=== PATIENT | female | born 1955 | race Caucasian/White ===

== ENCOUNTER 2022-03-24 13:51 | Outpatient (RCR) | payer MEDICARE, SELFPAY ==
[2022-03-24] MEDS: diphenhydrAMINE HCl CAP 25 MG CAPSULE PO (13:57)
[2022-03-24] MEDS: FAMOTIDINE 20 MG TABLET PO (13:57)
[2022-03-24 14:00] VITALS: BP 126/75; PULSE 93; RESP 18; TEMP 36.8; O2SAT 99
[2022-03-24] MEDS: BEBTELOVIMAB 175 MG/2 ML VIAL IV PUSH (14:14)
[2022-03-24 14:57] VITALS: BP 114/67; PULSE 77; RESP 20; O2SAT 98
== END 2022-03-24 16:24 ==
LOC: AMCINF 13:51
PROVIDERS: Referring Provider Family Medicine; Visit Provider Internal Medicine Hematology & Oncology
DX: U07.1 COVID-19 (principal)
CPT/HCPCS: A9270; M0222; Q0222

== ENCOUNTER 2022-11-12 09:35 | Outpatient (CLI) | payer MEDICARE, SELFPAY ==
[2022-11-12 12:18] LABS: CRP 0.7 mg/dL (<1.0)
[2022-11-12 12:26] LABS: Erythrocyte Sedimentation Rate 17 mm/hr (0-20)
[2022-11-17 22:27] LABS: Anti Cyclic Citrullinated Pept <16 Units (<20)
== END 2022-11-12 11:12 | disposition home or self-care (01) ==
PROVIDERS: PCP Family Medicine; Visit Provider Internal Medicine
DX: M19.90 Unspecified osteoarthritis, unspecified site (principal)
CPT/HCPCS: 36415; 85652; 86038; 86140; 86200

== ENCOUNTER 2022-11-12 11:19 | Outpatient (CLI) | payer MEDICARE, SELFPAY ==
--- NOTE | ~2022-11-12 | XR_ITS ---
EXAMINATION: XR foot RT standing 2V, XR foot LT standing 2V DATE: 11/12/2022 12:03 INDICATION: Unspecified osteoarthritis. TECHNIQUE: 1. Dorsoplantar and lateral views of the left foot were obtained. 2. Dorsoplantar and lateral views of the right foot were obtained. COMPARISON: None. FINDINGS: Left foot: Mild pes planus. There is some residual lucency along a fracture line at the proximal metadiaphysis o f the left fifth metatarsal with prominent associated callus formation, unclear whether there is alix d union. No other fractures identified. Polyarticular osteoarthritis, mild to moderate at the first m etatarsophalangeal joint and mild at multiple tarsometatarsal and interphalangeal joints. Moderate-si zed Achilles and plantar calcaneal spurs. Right foot: Normal alignment. Small amount of periosteal reaction along the dorsolateral cortex of the proximal m etaphysis of the right fifth metatarsal consistent with an age-indeterminate stress fracture. There i s no evident linear lucency and is unclear whether this represents ongoing subacute stress fracture o r a chronic healed stress fracture. Mild polyarticular osteophytosis at the first metatarsophalangeal joint and multiple tarsometatarsal and interphalangeal joints. Moderate-sized Achilles calcaneal and small plantar calcaneal spurs. IMPRESSION: 1. Chronic stress fracture of the proximal left fifth metatarsal with prominent callus formation but with residual lucency unclear whether solidly united. 2. Age-indeterminate stress fracture at the contralateral proximal right fifth metatarsal, unclear wh ether subacute and ongoing or chronic and healed. Reviewed, dictated and finalized at location A. 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 Chronic stress fracture of the proximal left fifth metatarsal with prominent callus formation but with residual lucency unclear whether solidly united. 2. Age-indeterminate stress fracture at the contralateral proximal right fifth metatarsal, unclear whether subacute and ongoing or chronic and healed.
[2022-11-12 12:14] LABS: Uric Acid 6.3 mg/dL (2.5-7.5)
== END 2022-11-12 11:20 | disposition home or self-care (01) ==
PROVIDERS: PCP Family Medicine; Visit Provider Internal Medicine
DX: M84.374A Stress fracture, right foot, initial encounter for fracture (principal); M84.475A Pathological fracture, left foot, initial encounter for fracture; M19.90 Unspecified osteoarthritis, unspecified site
CPT/HCPCS: 36415; 73620; 84550

== ENCOUNTER 2023-01-14 12:58 | Outpatient (CLI) | payer MEDICARE, SELFPAY ==
--- NOTE | 2023-01-14 13:22 | ECG_ITS ---
Measurements Intervals [place] Rate: 89 P: UT: 0 QRS: -25 QRSD: 85 T: -16 QT: 356 QTc: 433 Interpretive Statements SINUS OR ECTOPIC ATRIAL RHYTHM ATRIAL PREMATURE COMPLEXES LOW QRS VOLTAGE IN PRECORDIAL LEADS EXTENSIVE ANTERIOR INFARCT, AGE INDETERMINATE BASELINE ARTIFACT- I, II, AVR, AVL, AVF, V1-V6 ABNORMAL ECG NO PREVIOUS ECG AVAILABLE FOR COMPARISON Electronically Signed On 01-14-2023 14:56:23 CDT by Erick Covarrubias D.O.
[2023-01-14 16:09] LABS: Partial Thromboplastin Time 27.9 SECONDS (22.3-36.8)
[2023-01-14 17:16] LABS: Hematocrit 44.7 % (37.0-47.0); Hemoglobin 14.7 g/dL (12.0-15.0); Mean Corpuscular HGB Conc 32.9 g/dl (32-36); Mean Corpuscular Hemoglobin 30.6 pg (26-34); Mean Corpuscular Volume 93.1 fl (80-100); Mean Platelet Volume 11.3 fl (7.4-10.4); Platelet Count Result 407 k/mm3 (150-375); Red Cell Distribution Width 12.8 % (11.5-14.5)
[2023-01-14 17:57] LABS: Appearance Urine Clear (Clear); Bilirubin Urine 1+ (Negative); Blood Urine Negative (Negative); Color Urine Yellow (Yellow); Glucose Urine UA Negative (Negative); Ketones Urine 1+ mg/dL (Negative); Leukocyte Esterase Ur Negative LEU/UL (NEGATIVE); Nitrate Urine Negative (Negative); Protein Urine 1+ mg/dL (Negative); Specific Grav Ur 1.025 (1.001-1.035); Urobilinogen Urine 0.2 mg/dL (<2.0); pH Urine 5.5 (5.0-9.0)
[2023-01-14 17:59] LABS: Add Urine Microscopic? YES; RBC Urine 0-2 /hpf (0-2); Squamous Epithelial Cell Urine Rare /hpf (Few); WBC Urine 0-3 /hpf (0-3)
[2023-01-14 18:00] LABS: Bacteria Urine Rare /hpf
== END 2023-01-14 12:59 | disposition home or self-care (01) ==
LOC: ANHSURGERY 13:06
PROVIDERS: PCP Family Medicine; Visit Provider Neurological Surgery
DX: Z01.818 Encounter for other preprocedural examination (principal)
CPT/HCPCS: 36415; 80053; 81001; 82043; 83036; 85025; 85027; 85610; 85730; 86850; 86900; 86901; 93005

== ENCOUNTER 2023-01-14 13:09 | Outpatient (CLI) | payer MEDICARE, SELFPAY ==
[2023-01-14 16:01] LABS: Basophils Absolute Auto 0.1 K/mm3 (0.0-0.1); Basophils Percent Auto 0.7 % (0.2-1.2); Eosinophils Absolute Auto 0.3 K/mm3 (0-0.3); Eosinophils Percent Auto 2.9 % (0-4.4); Hematocrit 40.7 % (37.0-47.0); Hemoglobin 13.9 g/dL (12.0-15.0); Immature Granulocyte Absolute 0.03 K/mm3 (0.00-0.031); Immature Granulocyte Percent A 0.3 % (0-0.5); Lymphocytes Absolute Auto 3.57 K/mm3 (0.9-3.2); Lymphocytes Percent Auto 31.6 % (18.3-44.2); Mean Corpuscular HGB Conc 34.2 g/dl (32-36); Mean Corpuscular Hemoglobin 30.5 pg (26-34); Mean Corpuscular Volume 89.5 fl (80-100); Mean Platelet Volume 11.3 fl (7.4-10.4); Monocytes Absolute Auto 1.2 K/mm3 (0.1-0.6); Neutrophils Percent Auto 53.5 % (45.5-73.1); Platelet Count Result 399 k/mm3 (150-375); Red Blood Count 4.55 M/mm3 (4.2-5.4); Red Cell Distribution Width 12.7 % (11.5-14.5); White Blood Count 11.3 K/mm3 (4.5-10.0)
[2023-01-14 16:07] LABS: Alanine Aminotransferase 44 U/L (6-35); Albumin Level 4.7 g/dL (3.5-5.1); Alkaline Phosphatase 51 U/L (38-126); Anion Gap 11 mmol/L (8-16); Aspartate Amino Transferase 45 U/L (14-36); Bilirubin,Total 0.6 mg/dL (0.2-1.3); Blood Urea Nitrogen 17 mg/dL (7-17); Calcium 9.6 mg/dL (8.4-10.2); Carbon Dioxide 29 mmol/L (22-30); Chloride 92 mmol/L (98-107); Estimated Glomerular Filt Rate > 60; Glucose 139 mg/dL (65-110); Sodium 132 mmol/L (137-145)
[2023-01-14 18:04] LABS: Creatinine Urine 330.7 mg/dL
[2023-01-14 18:09] LABS: MALB Creatinine Ratio 12.2 mg/g (0-30); Microalbumin Urine Random 40.2 mg/L (0-16.7)
[2023-01-14 20:22] LABS: Hemoglobin A1C 8.4 % (<5.7)
== END 2023-01-14 13:10 | disposition home or self-care (01) ==
PROVIDERS: PCP Family Medicine; Visit Provider Family Medicine
DX: E11.65 Type 2 diabetes mellitus with hyperglycemia (principal)
CPT/HCPCS: 36415; 80053; 82043; 83036; 85025

== ENCOUNTER 2023-12-23 09:13 | Outpatient (CLI) | payer MEDICARE, SELFPAY ==
[2023-12-23 10:23] LABS: Hematocrit 44.7 % (37.0-47.0); Hemoglobin 14.2 g/dL (12.0-15.0); Mean Corpuscular HGB Conc 31.8 g/dl (32-36); Mean Corpuscular Hemoglobin 30.2 pg (26-34); Mean Corpuscular Volume 95.1 fl (80-100); Mean Platelet Volume 10.9 fl (7.4-10.4); Platelet Count Result 366 k/mm3 (150-375); Red Cell Distribution Width 12.2 % (11.5-14.5); White Blood Count 11.1 K/mm3 (4.5-10.0)
[2023-12-23 10:33] LABS: Anion Gap 9 mmol/L (8-16); Blood Urea Nitrogen 18 mg/dL (7-17); Calcium 9.9 mg/dL (8.4-10.2); Carbon Dioxide 30 mmol/L (22-30); Chloride 95 mmol/L (98-107); Estimated Glomerular Filt Rate > 60; Glucose 155 mg/dL (65-110); Potassium 3.5 mmol/L (3.4-5.0); Sodium 134 mmol/L (137-145)
[2023-12-23 10:34] LABS: Prothrombin Time 13.4 Seconds (11.1-14.7)
[2023-12-23 10:35] LABS: Partial Thromboplastin Time 28.3 SECONDS (22.3-36.8)
[2023-12-23 10:41] LABS: Appearance Urine Clear (Clear); Bilirubin Urine Negative (Negative); Blood Urine Negative (Negative); Color Urine Yellow (Yellow); Glucose Urine UA Negative (Negative); Ketones Urine Negative (Negative); Leukocyte Esterase Ur Negative LEU/UL (Negative); Nitrate Urine Negative (Negative); Protein Urine Negative (Negative); Specific Grav Ur 1.013 (1.001-1.035); Urobilinogen Urine 0.2 mg/dL (<2.0)
[2023-12-23 10:45] LABS: Add Urine Microscopic? NO; Hemoglobin A1C 8.5 % (<5.7)
== END 2023-12-23 09:14 | disposition home or self-care (01) ==
LOC: ANHSURGERY 09:20
PROVIDERS: PCP Family Medicine; Visit Provider Neurological Surgery
DX: M47.816 Spondylosis without myelopathy or radiculopathy, lumbar region (principal); Z01.818 Encounter for other preprocedural examination
CPT/HCPCS: 36415; 80048; 81003; 83036; 85027; 85610; 85730

== ENCOUNTER 2023-12-28 02:23 | Day surgery (SDC) | payer MEDICARE, SELFPAY ==
--- NOTE | 2023-12-16 15:36 | PC.NURSE ---
Report to the Outpatient Waiting Room, entrance under the green pavilion located off [facility], at time _0730 on date _12/28/23 . Planned Procedure Time: _929 . Time changes happen often and if your time is changed the preop area will call you the afternoon before. - You and your visitor will be asked to self-screen and do not enter if you have any COVID symptoms. - A mask is optional within the hospital at this time. Patients may have clear liquids (water, carbonated beverages, clear teas, apple juice) until 3 hours prior to surgery(6:30AM) with a maximum of 20 ounces. - No food from midnight until time of surgery - Infants may have breast milk until 4 hours before surgery, formula 6 hours prior to surgery. - Children will be allowed to drink immediately following surgery. If applicable, please bring a bottle or sippy cup to assist with drinking. Juice, water, soda, and popsicles are readily available. For infants on formula, please bring formula the day of surgery. Pacifiers are allowed. Take the following medications with a SIP of water the morning of surgery: __DULOXETINE,GABAPENTIN DO NOT STOP ANY OF YOUR OTHER PRESCRIPTION MEDICATIONS PRIOR TO SURGERY ?EXCEPT THE FOLLOWING Medications to discontinue per physician _ALL VITAMINS AND SUPPLEMENTS 3 DAYS PRE OP.LAST DOSE 12/24/23 Please no make-up, nail mexican, hairspray, perfume, deodorant, or body powder the day of surgery. No jewelry (including any body piercings) or valuables the day of surgery, leave them at home. Please take a shower or bath the night before, or the morning of, surgery with an antibacterial soap. Wear comfortable, loose fitting clothing. Children are encouraged to wear pajamas. - Jewelry must be removed prior to entering the operating room. Rings and piercings that are not removed may be cut off. - The hospital will not accept responsibility for valuables. - Please leave all valuables, including medications, at home the day of surgery. If you are going home after surgery, a licensed special education bus driver must drive you home. - NO public transportation without another adult if you receive anesthesia. - We recommend that an adult stay with you for 24 hours following discharge. - We also recommend that you do not drive, make important decision, drink alcoholic beverages, or take any drugs that were not prescribed by your health care provider for at least 24 hours after your discharge time. For Pediatric surgeries, we recommend two adults accompany the child home. Follow any additional instructions given to you from your surgeon. If you or anyone in your household have experienced Covid symptoms in the past week, please notify your surgeon or the nurse liaison at the phone number below for possible testing. Telephone instructions given to ___PATIENT and asked if any additional questions and then verbalized understanding. Patient advised to call surgeon office or pre surgery nurse liaison [phone] if any additional questions.
[2023-12-16 15:56] VITALS: BMI 30.1
[2023-12-28] VITALS (12 sets, daily range): BP systolic 104–148; BP diastolic 63–85; PULSE 85–107; RESP 14–20; TEMP 35.6–37.1; O2SAT 95–100
--- NOTE | ~2023-12-28 | XR_ITS ---
EXAMINATION: XR fluoroscopy no charge DATE: 12/28/2023 12:16 INDICATION: Lumbar spondylosis and stenosis. TECHNIQUE: A single intraoperative lateral fluoroscopic view of the lumbar spine was obtained. I was not present. Fluoroscopy time was 1 second. COMPARISON: None. FINDINGS: There is mild lumbar spondylosis. Instruments overlie the posterior elements at L4 and L5. IMPRESSION: 1. Mild lumbar spondylosis. Reviewed, dictated and finalized at location A. 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 Mild lumbar spondylosis.
[2023-12-28 08:34] LABS: Glucose Point of Care 172 mg/dl (65-105)
--- NOTE | 2023-12-28 09:11 | WPDANESEPPF ---
Anes - Initial Pre Proc Eval Procedure: Operation Date: 12/28/23 09:30 Proposed Procedures p L3-5 Lumbar Laminectomy - Duncan Sanders MD Date/Time: 12/28/23 09:11 Surgeon: Duncan Sanders MD Pre Op Diagnosis: lumbar spondylosis and stenosis Patient Data Age: 68 Gender: F Height: 1.73 m Weight: 91.7 kg Last Vital Signs Temp 37.1 C 12/28/23 08:47 Pulse 100 12/28/23 08:47 Resp 14 12/28/23 08:47 BP 134/85 12/28/23 08:47 Pulse Ox 100 12/28/23 08:47 O2 Del Method Room Air 12/28/23 08:47 Allergies Allergy/AdvReac Type Severity Reaction Status Date / Time cefaclor [From Ceclor] AdvReac Unknown Rash Verified 12/28/23 08:52 nickel AdvReac Unknown Rash Verified 12/28/23 08:52 Home Medications Medication Instructions Recorded Confirmed Type gabapentin 300 mg capsule 300 mg PO TID 09/10/22 12/28/23 History glipizide 5 mg tablet 5 mg PO BID 09/10/22 12/16/23 History rosuvastatin 20 mg tablet (Crestor) 20 mg PO DAILY 09/10/22 12/16/23 History semaglutide 1 mg/dose (2 mg/1.5 1 mg subcut WEEKLY 09/10/22 12/16/23 History mL) subcutaneous pen injector (Ozempic) tramadol 50 mg tablet 50 mg PO Q6H PRN Pain 09/10/22 12/16/23 History duloxetine 30 mg capsule,delayed See Rx Instructions .Route 11/17/22 12/28/23 Rx release .COMPLEX #90 caps acetaminophen 500 mg tablet 1,000 mg PO BID PRN Pain 01/08/23 12/16/23 History hydrochlorothiazide 25 mg tablet 25 mg QAM 01/08/23 12/16/23 History lisinopril 20 mg tablet 20 mg PO QAM 01/08/23 12/16/23 History meclizine 25 mg tablet 25 mg PO DAILY PRN Dizziness 01/08/23 12/16/23 History metformin 500 mg tablet 1,000 mg PO BID 01/08/23 12/16/23 History cetirizine 10 mg tablet (Zyrtec) 10 mg PO DAILY 12/16/23 12/16/23 History insulin glargine 100 unit/mL (3 10 unit subcut HS 12/16/23 12/16/23 History mL) subcutaneous pen (Lantus Solostar U-100 Insulin) [id number]-[id number]-minerals 18 1 tablet PO DAILY 12/16/23 12/28/23 History mg-0.4 mg tablet Laboratory Tests 12/28/23 08:30 POC Capillary Glucose 172 H mg/dl (65-105) Patient hx anesthesia problems: none Family hx anesthesia problems: none Results Review: All pre-operative results and documents have been reviewed as part of the pre-operative evaluation. [facility] Past Medical History Medical History Acute anxiety Allergies Arthritis Cancer Diabetes Generalized osteoarthritis of multiple sites Hypertension Inflammatory arthritis Inflammatory arthritis Surgical History Surgical History History of hip replacement, total Family History Family History Father Cancer Social History Social History Smoking status: Never smoker Second hand tobacco smoke exposure: No Alcohol intake: never Substance use: never Substance use type: does not use Lack of Transportation: No Lack of Food: Never True Current Housing: I Have Housing Concerned About Future Housing: No Difficulty Paying Gas/Electric Bills: No Difficulty Paying for Meds: No Currently Unemployed: No Education: Master's Degree or Higher Difficulty w/ Childcare or Family Care: No Living arrangements: alone Spiritual care concerns: No Anes - Eval Final PreProcedure Day of Procedure 12/28/23 09:11 Patient weight: obese Heart: regular rate and rhythm Lungs: clear to auscultation Airway: Mallampati scale class II Neurological: alert and oriented Last oral intake: >/= 8 hours ASA classification: III Emergent: no Anesthetic plan: proceed Anesthesia type and monitoring: general ETT and standard monitoring Results Review: All pre-operative results and documents have been reviewed as part of the pre-operative evaluation. Informed Consent: The patient's anesthet
[2023-12-28] MEDS: LACTATED RINGERS 1,000 ML 30 ML IV CONT ×2 (09:22→12:21)
[2023-12-28] MEDS: CLINDAMYCIN 900 MG/D5W 50 ML 900 MG/50 ML PIGGYBACK 50 MG IVPB (10:21)
--- NOTE | 2023-12-28 10:21 | PM.IMHP ---
H&P: HPI History of Present Illness Date/Time: 12/28/23 10:21 Chief Complaint: Neurogenic claudication Narrative: Anabella is a 60-year-old female with claudicatory back and leg pain related to stenosis at L3-5 presents for laminectomy. She has not changed appreciably since we last saw her. She does not have any specific muscle group weakness or dermatomal numbness. She does not have any bowel or bladder difficulty. Review of Systems Review of Systems: Patient denies shortness of breath, cough, fever, chills, nausea, vomiting, weight loss, weight gain, chest pain, dysuria. She has back and leg pain and claudication as above. Review of systems is otherwise negative on 12 systems except as noted elsewhere. [facility] Past Medical History Medical History Acute anxiety Allergies Arthritis Cancer Diabetes Generalized osteoarthritis of multiple sites Hypertension Inflammatory arthritis Inflammatory arthritis Surgical History Surgical History History of hip replacement, total Family History Family History Father Cancer Social History Social History Smoking status: Never smoker Second hand tobacco smoke exposure: No Alcohol intake: never Substance use: never Substance use type: does not use Lack of Transportation: No Lack of Food: Never True Current Housing: I Have Housing Concerned About Future Housing: No Difficulty Paying Gas/Electric Bills: No Difficulty Paying for Meds: No Currently Unemployed: No Education: Master's Degree or Higher Difficulty w/ Childcare or Family Care: No Living arrangements: alone Spiritual care concerns: No Meds Home Medications and Allergies Home Medications Medication Instructions Recorded Confirmed Type gabapentin 300 mg capsule 300 mg PO TID 09/10/22 12/28/23 History glipizide 5 mg tablet 5 mg PO BID 09/10/22 12/16/23 History rosuvastatin 20 mg tablet (Crestor) 20 mg PO DAILY 09/10/22 12/16/23 History semaglutide 1 mg/dose (2 mg/1.5 1 mg subcut WEEKLY 09/10/22 12/16/23 History mL) subcutaneous pen injector (Ozempic) tramadol 50 mg tablet 50 mg PO Q6H PRN Pain 09/10/22 12/16/23 History duloxetine 30 mg capsule,delayed See Rx Instructions .Route 11/17/22 12/28/23 Rx release .COMPLEX #90 caps acetaminophen 500 mg tablet 1,000 mg PO BID PRN Pain 01/08/23 12/16/23 History hydrochlorothiazide 25 mg tablet 25 mg QAM 01/08/23 12/16/23 History lisinopril 20 mg tablet 20 mg PO QAM 01/08/23 12/16/23 History meclizine 25 mg tablet 25 mg PO DAILY PRN Dizziness 01/08/23 12/16/23 History metformin 500 mg tablet 1,000 mg PO BID 01/08/23 12/16/23 History cetirizine 10 mg tablet (Zyrtec) 10 mg PO DAILY 12/16/23 12/16/23 History insulin glargine 100 unit/mL (3 10 unit subcut HS 12/16/23 12/16/23 History mL) subcutaneous pen (Lantus Solostar U-100 Insulin) [id number]-Ei-puth-minerals 18 1 tablet PO DAILY 12/16/23 12/28/23 History mg-0.4 mg tablet Allergies Allergy/AdvReac Type Severity Reaction Status Date / Time cefaclor [From [facility]] AdvReac Unknown Rash Verified 12/28/23 08:52 nickel AdvReac Unknown Rash Verified 12/28/23 08:52 Vital Signs Vital Signs - 24 hr 12/28/23 08:47 Temperature 98.7 F Pulse Rate 100 Respiratory Rate 14 Blood Pressure 134/85 Pulse Oximetry 100 Oxygen Delivery Room Air Exam Narrative: Strength is 5/5 in all muscle groups of the bilateral lower extremities. Sensation is intact to light touch throughout the lower extremities. Breathing is nonlabored Regular rate and rhythm Assessment and Plan Assessment and plan (1) Lumbar stenosis with neurogenic claudication: Code(s): M48.062 - Spinal stenosis, lumbar region with neurogenic claudication Status
--- NOTE | 2023-12-28 10:28 | WPDHPUPDATE1 ---
History and Physical Update Update Date/Time: 12/28/23 10:28 History and Physical has been reviewed, including an updated exam of the patient. There are NO changes in the patient's condition. Risks, benefits, and alternatives have been discussed and questions answered. Patient agrees to proceed with procedure.
[2023-12-28] MEDS: LIDO 1%/EPINEPHRINE 1:100,000 50 ML VIAL 10 ML INFILTRATE (10:44)
--- NOTE | 2023-12-28 12:10 | P.OP_ITS ---
Procedure Note - Detailed Date of Procedure 12/28/23 Pre-op Diagnosis lumbar spondylosis and stenosis Post-op Diagnosis Same Procedure Performed L3-5 laminectomy Surgeon Duncan Sanders MD Anesthesia General Description of Procedure Patient was brought to the operating room in supine position, was sedated, int ubated and placed under general anesthesia in routine fashion. She was then turned into the prone position on a Rob frame. There were operation her back was examined, marked for incision, prepped and draped in routine sterile fashion. Incision was marked over the L3-5 spinous processes in the midline. This area was injected with 0.5% lidocaine with [id number] epinephrine. Intravenous antibiotics given prior to incision. Incision was made with a 10 blade scalpel down to the lumbodorsal fascia. A subperiosteal dissection of the muscle soft tissue away from spinous process and lamina at L3-5 bilaterally was performed with a subperiosteal elevator and Bovie cautery. A verifying x-rays obtained to verify the level of operation. The L3-5 spinous processes were removed with a Jaron rongeur. A Midas Robin drill with an [place] bit was used to thin the laminae in the midline into the soft contents of the canal were encountered. Kerrison punches and curved curettes were used to define a plane with the dura and removed bone and ligament in the midline exposing the dura. A curved curette was used to define a plane in the lateral recess and to lift overgrown ligament. This was removed as well as overgrown bone in the lateral recess superiorly to inferiorly. This was performed until a dental instrument could be placed in the lateral epidural space to confirm lack of compression. The wound was then copiously irrigated with bacitracin irrigation all bleeding stopped with bipolar and Bovie cautery and Gelfoam thrombin powder. The wound was then closed in layered fashion with 2-0 Vicryl interrupted sutures in the lumbodorsal fashion and Zohaib's layer. 3-0 Vicryl buried interrupted sutures were placed in the dermis and the skin was closed with a running 4-0 Monocryl s ubcuticular stitch and dressed with Dermabond. The patient was allowed to wake up in the operating room and was taken to the recovery room in stable condition. There were no immediate complications of this operation. All counts were reported correct at the end of the case. Blood loss was 50 cc. The patient was neurologically at her baseline postoperatively. CPT codes: 58133, 20139 x 2
--- NOTE | 2023-12-28 12:13 | WPDHPUPDATE1 ---
History and Physical Update Update Date/Time: 12/28/23 12:13 History and Physical has been reviewed, including an updated exam of the patient. There are NO changes in the patient's condition. Risks, benefits, and alternatives have been discussed and questions answered. Patient agrees to proceed with procedure.
[2023-12-28 12:28] LABS: Glucose Point of Care 228 mg/dl (65-105)
--- NOTE | 2023-12-28 12:49 | SUR.PHASEI ---
1249 - dr. baer aware of accucheck 228. no orders received at this time
--- NOTE | 2023-12-28 13:42 | ADMGEN ---
This patient, Anabella Joseph, was admitted to 3 Med Surg Room 30101at 1320. Patient/family oriented to hospital policies and general routines including ID bracelet, bed and alarms, visiting hours, pain management, procedures, bathroom and other care routines, personal items, smoking policy, room service/diet, and visiting hours. Information on how to activate the Rapid Response Team has been discussed. Patient/Family are encouraged to report perceived risks to care and to ask questions if they do not understand what they are told or what they should do.
[2023-12-28] MEDS: SCOPOLAMINE 1 MG PATCH 1 PATCH TRANSDERM (14:55)
[2023-12-28] MEDS: HYDROcodone/acetaminophen (*CRX) 5-325 MG TABLET 1 TAB PO (16:24)
[2023-12-28] MEDS: KCL 20 MEQ/D5/0.45% SOD CHL 1,000 ML 100 ML IV CONT (16:24)
[2023-12-28] MEDS: CYCLOBENZAPRINE HCL 10 MG TABLET PO (20:45)
[2023-12-28] MEDS: DOCUSATE SODIUM 100 MG CAPSULE PO (20:45)
[2023-12-28] MEDS: HYDROcodone/acetaminophen (*CRX) 10-325 MG TABLET 1 TAB PO (22:25)
[2023-12-29 00:11] VITALS: BP 125/76; PULSE 90; RESP 18; TEMP 36.4; O2SAT 97
[2023-12-29 02:28] LABS: Glucose Point of Care 183 mg/dl (65-105)
[2023-12-29] MEDS: HYDROcodone/acetaminophen (*CRX) 10-325 MG TABLET 1 TAB PO ×2 (02:29→08:45)
[2023-12-29 04:11] VITALS: BP 117/73; PULSE 73; RESP 18; TEMP 36.7; O2SAT 96
[2023-12-29 07:58] VITALS: BP 122/70; PULSE 80; RESP 18; TEMP 36.3; O2SAT 98
[2023-12-29] MEDS: DOCUSATE SODIUM 100 MG CAPSULE PO (08:47)
[2023-12-29 12:00] VITALS: BP 128/78; PULSE 86; RESP 18; TEMP 36.4; O2SAT 97
== END 2023-12-29 12:10 | disposition home or self-care (01) ==
LOC: ANHSURGERY 07:26 → ANH3MEDSUR 13:15
PROVIDERS: PCP Family Medicine; Visit Provider Neurological Surgery
PROC: (CPT 63005; principal; 2023-12-28 09:30)
DX: M47.816 Spondylosis without myelopathy or radiculopathy, lumbar region (principal); M48.062 Spinal stenosis, lumbar region with neurogenic claudication; E11.9 Type 2 diabetes mellitus without complications; I10 Essential (primary) hypertension; Z79.85 Long-term (current) use of injectable non-insulin antidiabetic drugs; Z79.84 Long term (current) use of oral hypoglycemic drugs; Z79.4 Long term (current) use of insulin
CPT/HCPCS: 63047; 63048; 36415; 80048; 81003; 82948; 83036; 85027; 85610; 85730; 97161; 97165; 97530; 97535; 99199; A9270; J0330; J1100; J1170; J1200; J2371; J2405; J2704; J3010; J3480; J7120

== ENCOUNTER 2024-08-03 14:55 | Emergency (ER) | payer MEDICARE, SELFPAY ==
--- NOTE | ~2024-08-03 | CT_ITS ---
EXAMINATION: CT brain wo con DATE: 08/03/2024 18:07 INDICATION: Head injury. Dizziness. TECHNIQUE: Computed tomography (CT) of the head was performed without intravenous contrast. The mA wa s adjusted according to patient size. Iterative reconstruction technique was employed. The dose-lengt h product was 681.00 mGy-cm. COMPARISON: None FINDINGS: There is no intracranial hemorrhage, acute infarction, or abnormal intracranial mass lesion . There are scattered areas of low attenuation in the cerebral white matter, which is within normal l imits for the patient's age. The ventricles are normal in size. There is mild mucosal thickening in t he paranasal sinuses. The orbits are normal. There are changes of left mastoidectomy. IMPRESSION: 1. Normal aging brain. Reviewed, dictated and finalized at location A. IMPRESSION: 1. Normal aging brain.
[2024-08-03 15:00] VITALS: BP 142/84; PULSE 98; RESP 16; TEMP 36.6; O2SAT 99
--- NOTE | 2024-08-03 15:34 | ECG_ITS ---
Test Date: 2024-08-03 15:45:46 Measurements Intervals [place] Rate: 108 P: 32 NE: 158 QRS: -42 QRSD: 97 T: 32 QT: 329 QTc: 442 Interpretive Statements SINUS TACHYCARDIA LOW QRS VOLTAGE IN PRECORDIAL LEADS [QRS DEFLECTION < 1.0 mV IN CHEST LEADS] INFERIOR MYOCARDIAL INFARCTION , OF INDETERMINATE AGE [40+ ms Q WAVE AND/OR ST/T ABNORMALITY IN II/aVF] ANTEROSEPTAL MYOCARDIAL INFARCTION , PROBABLY OLD [40+ ms Q WAVE IN V1-V4] No previous ECG available for comparison Electronically Signed On 08-03-2024 15:55:26 CDT by Anurag Hill M.D.
[2024-08-03 15:50] VITALS: BP 122/65; PULSE 104; RESP 15; O2SAT 98
[2024-08-03 16:16] LABS: Basophils Absolute Auto 0.1 K/mm3 (0.0-0.1); Basophils Percent Auto 0.5 % (0.2-1.2); Eosinophils Absolute Auto 0.2 K/mm3 (0-0.3); Eosinophils Percent Auto 1.2 % (0-4.4); Hematocrit 44.9 % (37.0-47.0); Hemoglobin 14.8 g/dL (12.0-15.0); Immature Granulocyte Absolute 0.08 K/mm3 (0.00-0.031); Immature Granulocyte Percent A 0.5 % (0-0.5); Lymphocytes Absolute Auto 2.92 K/mm3 (0.9-3.2); Lymphocytes Percent Auto 18.5 % (18.3-44.2); Mean Corpuscular Hemoglobin 30.6 pg (26-34); Mean Corpuscular Volume 92.8 fl (80-100); Mean Platelet Volume 10.5 fl (7.4-10.4); Monocytes Percent Auto 6.5 % (2.6-8.5); Neutrophils Absolute Auto 11.5 K/mm3 (1.3-6.7); Neutrophils Percent Auto 72.8 % (45.5-73.1); Platelet Count Result 384 k/mm3 (150-375); Red Blood Count 4.84 M/mm3 (4.2-5.4); Red Cell Distribution Width 13.6 % (11.5-14.5); White Blood Count 15.8 K/mm3 (4.5-10.0)
[2024-08-03 16:24] LABS: Potassium 4.4 mmol/L (3.4-5.0); Sodium 135 mmol/L (137-145)
[2024-08-03 16:25] LABS: Alanine Aminotransferase 87 U/L (6-35); Alkaline Phosphatase 53 U/L (38-126); Anion Gap 16 mmol/L (4-12); Aspartate Amino Transferase 67 U/L (14-36); Bilirubin,Total 0.4 mg/dL (0.2-1.3); Blood Urea Nitrogen 31 mg/dL (7-17); Calcium 9.9 mg/dL (8.4-10.2); Carbon Dioxide 25 mmol/L (22-30); Chloride 94 mmol/L (98-107); Estimated CRCL calculation 40 ml/min; Estimated Glomerular Filt Rate 37; Glucose 192 mg/dL (65-110)
--- NOTE | 2024-08-03 17:44 | ED.DIZZY ---
HPI - Dizziness General Chief Complaint: Dizziness Stated Complaint: fall/head=emesis Time Seen by Provider: 08/03/24 16:59 Source: patient Mode of arrival: ambulatory Limitations: no limitations History of Present Illness HPI Narrative: This is a 69-year-old female who presents to the ED via EMS for chief complaint of dizziness that began just prior to arrival. Patient was shopping, had bent over to mushroom picker a large case of water. Starts that she started to feel dizzy as she came up the water. States that she try to regain her balance but ended up hitting the top of her head on the cart rail. She did fall the ground but denies LOC. Denies numbness, weakness, neck pain or back pain. States that the symptoms have resolved after getting a L of fluids and Zofran per EMS. She does do with chronic vertigo but does not feel that she has any vertigo symptoms at this point. She did have 3 episodes of vomiting but nausea is now resolved. Denies recent illness, fevers, chills, nausea, vomiting, abdominal pain, chest pain. Related Data Home Medications Medication Instructions Recorded Confirmed gabapentin 300 mg capsule 300 mg PO TID 09/10/22 02/06/24 glipizide 5 mg tablet 5 mg PO BID 09/10/22 02/06/24 rosuvastatin 20 mg tablet (Crestor) 20 mg PO DAILY 09/10/22 02/06/24 semaglutide 1 mg/dose (2 mg/1.5 1 mg subcut WEEKLY 09/10/22 02/06/24 mL) subcutaneous pen injector (Ozempic) tramadol 50 mg tablet 50 mg PO Q6H PRN Pain 09/10/22 02/06/24 acetaminophen 500 mg tablet 1,000 mg PO BID PRN Pain 01/08/23 02/06/24 hydrochlorothiazide 25 mg tablet 25 mg QAM 01/08/23 02/06/24 lisinopril 20 mg tablet 20 mg PO QAM 01/08/23 02/06/24 meclizine 25 mg tablet 25 mg PO DAILY PRN Dizziness 01/08/23 02/06/24 metformin 500 mg tablet 1,000 mg PO BID 01/08/23 02/06/24 cetirizine 10 mg tablet (Zyrtec) 10 mg PO DAILY 12/16/23 02/06/24 insulin glargine 100 unit/mL (3 10 unit subcut HS 12/16/23 02/06/24 mL) subcutaneous pen (Lantus Solostar U-100 Insulin) pacjrfiuoufp-Yd-aupe-minerals 18 1 tablet PO DAILY 12/16/23 02/06/24 mg-0.4 mg tablet Allergies Allergy/AdvReac Type Severity Reaction Status Date / Time cefaclor [From Ceclor] AdvReac Unknown Rash Verified 02/02/24 13:51 nickel AdvReac Unknown Rash Verified 02/02/24 13:51 Review of Systems Review of Systems: All systems as dictated in [facility] Past Medical History Medical History Acute anxiety Allergies Arthritis Cancer Diabetes Generalized osteoarthritis of multiple sites Hypertension Inflammatory arthritis Inflammatory arthritis Surgical History Surgical History History of hip replacement, total Family History Family History Father Cancer Social History Social History Smoking status: Never smoker Second hand tobacco smoke exposure: No Alcohol intake: never Substance use: never Substance use type: does not use Do You Feel Safe in your Home?: Yes Lack of Transportation: No Lack of Food: Never True Current Housing: I Have Housing Concerned About Future Housing: No Difficulty Paying Gas/Electric Bills: No Difficulty Paying for Meds: No Currently Unemployed: No Education: Master's Degree or Higher Difficulty w/ Childcare or Family Care: No Living arrangements: alone Spiritual care concerns: No Exam Narrative: GENERAL: Well-appearing, well-nourished, and in no acute distress. HEAD: Normocephalic, atraumatic. EYES: PERRLA and EOMI. ENT: Nares clear, no rhinorrhea or epistaxis. Mucous membranes moist. Oropharynx without tonsillar hypertrophy exudate or other lesions. NECK: Supple. No adenopathy or masses. CHEST: No respiratory distress. Clear to auscultation. No wheezes rales or rhonchi HEART: Reg
[2024-08-03] MEDS: SODIUM CHLORIDE 0.9% IV 1,000 ML 999 ML IV CONT (18:11)
[2024-08-03 18:24] LABS: Add Urine Microscopic? NO; Appearance Urine Clear (Clear); Bilirubin Urine Negative (Negative); Blood Urine Negative (Negative); Color Urine Yellow (Yellow); Glucose Urine UA Negative (Negative); Ketones Urine Negative (Negative); Leukocyte Esterase Ur Negative LEU/UL (Negative); Nitrate Urine Negative (Negative); Protein Urine Negative (Negative); Specific Grav Ur 1.021 (1.001-1.035); Urobilinogen Urine 0.2 mg/dL (<2.0); pH Urine 5.5 (5.0-9.0)
[2024-08-03 18:51] VITALS: BP 133/75; PULSE 96; RESP 18; TEMP 36.4; O2SAT 99
== END 2024-08-03 18:50 | disposition home or self-care (01) ==
PROVIDERS: Emergency Medicine; Emergency Provider Physician Assistant; PCP Family Medicine
DX: I95.1 Orthostatic hypotension (principal); S09.90XA Unspecified injury of head, initial encounter; I10 Essential (primary) hypertension; E11.9 Type 2 diabetes mellitus without complications; M19.90 Unspecified osteoarthritis, unspecified site; Z96.649 Presence of unspecified artificial hip joint; Z79.85 Long-term (current) use of injectable non-insulin antidiabetic drugs; Z79.899 Other long term (current) drug therapy; Z79.84 Long term (current) use of oral hypoglycemic drugs; Z79.4 Long term (current) use of insulin; R00.0 Tachycardia, unspecified; R94.31 Abnormal electrocardiogram [ECG] [EKG]; W01.198A Fall on same level from slipping, tripping and stumbling with subsequent striking against other object, initial encounter
CPT/HCPCS: 36415; 70450; 80053; 81003; 85025; 93005; 96360; 99284; J7030